=== PATIENT | male | born 1995 | race Caucasian/White ===

== ENCOUNTER 2024-01-12 21:33 | Emergency (ER) | payer SELFPAY ==
[2024-01-12 22:33] LABS: Influenza A by NAA Not Detected (NotDetected); Influenza B by NAA Not Detected (NotDetected); SARS-CoV-2 NAA Rapid Test DETECTED (NotDetected)
[2024-01-13] MEDS ORDERED: Milk Of Magnesia 30 ML UDCUP ONE (00:02)
[2024-01-13] MEDS ORDERED: Lidocaine Viscous Sol 2% 15 ml UD Cup ONE (00:02)
== END 2024-01-13 00:40 | disposition home or self-care (01) ==
LOC: CSHERS 21:33
DX: U07.1 COVID-19 (principal); K29.00 Acute gastritis without bleeding
CPT/HCPCS: 93005; 96360

== ENCOUNTER 2025-01-07 13:23 | Emergency (ER) | payer SELFPAY ==
[~2025-01-07 13:23] MED LIST: Iopamidol 370 76% 100 ML VIAL ONE
[2025-01-07] MEDS ORDERED: Lidocaine Viscous Sol 2% 15 ml UD Cup ONE (13:54)
[2025-01-07] MEDS ORDERED: Milk Of Magnesia 30 ML UDCUP ONE (13:54)
[2025-01-07] MEDS ORDERED: Multivitamins, Adult 10 ML, Thiamine HCl 100 MG, Folic Acid 1 MG in Dextrose 5 %-0.45 %... IV SCH (14:00)
[2025-01-07 14:10] LABS: #Basophils Less than 0.03 10x3/uL (0.0-0.2); #Eosinophils 0.09 10x3/uL (0.0-0.5); #Monocytes 0.34 10x3/uL (0.0-1.1); #Neutrophils 4.12 10x3/uL (1.5-8.4); %Basophils 0.3 % (0.0-2.0); %Eosinophils 1.4 % (0.0-6.0); %Lymphocytes 28.3 % (18.0-47.0); %Monocytes 5.3 % (0.0-10.0); %Neutrophils 64.5 % (40.0-75.0); Hematocrit 49.2 % (38.8-50.0); Hemoglobin 16.4 g/dL (13.5-17.5); Mean Corpuscular Hemoglobin 29.9 pg (27.0-33.0); Mean Corpuscular Volume 89.6 fL (81.2-95.1); Platelet Count 269 10x3/uL (150-450); Red Blood Cell (RBC) Count 5.49 10x6/uL (4.32-5.72); White Blood Cell (WBC) Count 6.39 10x3/uL (3.5-10.5)
[2025-01-07 14:30] LABS: Acetaminophen Less than 10 mcg/mL (Less than 10); CK (CPK) 108 U/L (30-200); Lipase 30 U/L (8-78); Salicylate Less than 8.0 mg/dL (Less than 8.0)
[2025-01-07 14:31] LABS: ALT (SGPT) 41 U/L (Less than 45); AST (SGOT) 35 U/L (11-34); Albumin 4.9 g/dL (3.1-4.5); Alkaline Phosphatase 84 U/L (40-110); Anion Gap 19 mmol/L (10-20); BUN (Urea Nitrogen) 4 mg/dL (8.9-20.6); Bilirubin, Total 0.9 mg/dL (0.3-1.2); Calc. Creatinine Clearance 0 mL/min (70-130); Calcium 9.5 mg/dL (7.8-10.44); Carbon Dioxide 23 mmol/L (22-29); Chloride 104 mmol/L (98-107); Globulin 3.2 g/dL (2.4-3.5); Glucose 93 mg/dL (70-105); Potassium 4.1 mmol/L (3.5-5.1); Sodium 142 mmol/L (136-145)
[2025-01-07 14:33] LABS: Troponin I Less than 0.010 ng/mL (< 0.028)
[2025-01-07 14:53] LABS: Glucose, Urine (Dipstick) Normal (Negative); Leukocyte Negative (Negative); Protein, Urine (Dipstick) 30 mg/dl (Neg-Trace); Specific Gravity, Urine 1.010 (1.005-1.030)
[2025-01-07 15:03] LABS: Cocaine Metabolite Screen PRELIM POSITIVE (Negative); THC/Cannabinoid Screen Negative (Negative); Tricyclic Screen Negative (Negative)
[2025-01-07 15:53] LABS: Mucous/LPF 3+ LPF (<2+)
[2025-01-07 15:55] LABS: Bacteria/HPF 2+ HPF (None Seen)
[2025-01-07 16:00] LABS: CAUTI Indications for Culture Pelvic or flank pain; RBC/HPF None Seen HPF (0-3)
[2025-01-07 16:01] LABS: Urine Culture Reflex No No
[2025-01-07 17:02] LABS: Troponin I Less than 0.010 ng/mL (< 0.028)
[2025-01-07] MEDS ORDERED: Ondansetron PF 4 MG/2 ML Vial ONE (18:27)
[2025-01-07] MEDS ORDERED: Pantoprazole 40 MG VIAL ONE (18:28)
== END 2025-01-07 19:21 | disposition home or self-care (01) ==
LOC: CSHERS 13:23
DX: K29.20 Alcoholic gastritis without bleeding (principal); R07.9 Chest pain, unspecified; K76.0 Fatty (change of) liver, not elsewhere classified; F41.9 Anxiety disorder, unspecified; Y90.4 Blood alcohol level of 80-99 mg/100 ml
CPT/HCPCS: 36415; 71045; 71275; 74177; 76705; 80053; 80306; 80307; 81001; 82550; 83690; 84443; 84484; 85025; 93005; J2060; J2405; J2470; J3411; J7042